=== PATIENT | female | born 1995 | race Caucasian/White ===

== ENCOUNTER 2018-03-14 23:51 | Emergency (ER) | payer BC, OTHER ==
[~2018-03-14] VITALS: Ht 180.3 cm; Wt 65.8 kg
[~2018-03-14 23:51] MED LIST: Cyclobenzaprine5 MG PO; ERYT.5TO RIGHTEYE
[2018-03-15] MEDS ORDERED: BIRTH CONTROL PILLS (00:09)
[2018-03-15] MEDS ORDERED: IBUP800 PO ×2 (00:49→01:09)
[2018-03-15] MEDS ORDERED: Zithromax250 MG PO ×2 (00:49→01:08)
== END 2018-03-15 01:12 | disposition home or self-care (01) ==
LOC: ER 23:51
DX: H66.91 Otitis media, unspecified, right ear (principal); Z88.0 Allergy status to penicillin; Z88.2 Allergy status to sulfonamides; Z79.2 Long term (current) use of antibiotics

== ENCOUNTER → 2018-06-20 | Outpatient (CLI) | payer BC, OTHER ==
[~2018-06-20] MED LIST changes: +BIRTH CONTROL PILLS; +IBUP800 PO; +Zithromax250 MG PO
[2018-06-23 05:12] LABS: CHLAMYDIA TRACHOMATIS, NAA Negative (Negative); NEISSERIA GONORRHOEAE, NAA Negative (Negative)
== END | disposition home or self-care (01) ==
LOC: LAB 16:47 → LAB SHORT 16:47
PROVIDERS: Obstetrics & Gynecology
DX: Z20.2 Contact with and (suspected) exposure to infections with a predominantly sexual mode of transmission (principal)
CPT/HCPCS: 87491; 87591

== ENCOUNTER 2018-12-06 22:51 | Inpatient (IN) | payer BC, OTHER ==
[~2018-12-06] VITALS: Ht 180.3 cm; Wt 100.0 kg
[2018-12-06 23:34] LABS: BASOPHILS ABSOLUTE AUTO 0.05 K/mm3 (0.00-0.23); BASOPHILS PERCENT AUTO 0 % (0-2); EOSINOPHILS ABSOLUTE AUTO 0.06 K/mm3 (0.00-0.68); EOSINOPHILS PERCENT AUTO 1 % (0-6); Hemoglobin 10.3 g/dL (11.5-16.0); IMMATURE GRAN ABSOLUTE AUTO 0.05 K/mm3 (0.00-0.10); IMMATURE GRAN PERCENT AUTO 0 % (0-1); LYMPHOCYTES ABSOLUTE AUTO 1.17 K/mm3 (0.84-5.20); LYMPHOCYTES PERCENT AUTO 9 % (21-46); MONOCYTES ABSOLUTE AUTO 0.97 K/mm3 (0.16-1.47); MONOCYTES PERCENT AUTO 8 % (4-13); Mean Corpuscular HGB 24.5 pg (26.0-34.0); Mean Corpuscular HGB Conc 31.2 g/dL (31.5-36.5); Mean Corpuscular Volume 78 fL (80-100); Mean Platelet Volume 10.3 fL (9.1-12.4); NEUTROPHILS ABSOLUTE AUTO 10.31 K/mm3 (1.96-9.15); NEUTROPHILS PERCENT AUTO 82 % (41-73); Platelet Count 251 K/mm3 (150-400); RDW Coefficient Variation 14.1 % (11.7-14.2); RDW Standard Deviation 39.8 fL (35.1-46.3); Red Blood Cell Count 4.21 M/mm3 (3.80-5.20); White Blood Cell Count 12.61 K/mm3 (4.00-11.30)
--- NOTE | 2018-12-07 08:22 | NUR ---
Pt gave [facility] permission to provide care 12/07/18.
[2018-12-08 06:06] LABS: BASOPHILS ABSOLUTE AUTO 0.06 K/mm3 (0.00-0.23); BASOPHILS PERCENT AUTO 1 % (0-2); EOSINOPHILS ABSOLUTE AUTO 0.15 K/mm3 (0.00-0.68); EOSINOPHILS PERCENT AUTO 2 % (0-6); Hematocrit 29.3 % (33.0-51.0); Hemoglobin 9.1 g/dL (11.5-16.0); IMMATURE GRAN ABSOLUTE AUTO 0.04 K/mm3 (0.00-0.10); IMMATURE GRAN PERCENT AUTO 1 % (0-1); LYMPHOCYTES ABSOLUTE AUTO 1.69 K/mm3 (0.84-5.20); LYMPHOCYTES PERCENT AUTO 19 % (21-46); MONOCYTES ABSOLUTE AUTO 0.73 K/mm3 (0.16-1.47); MONOCYTES PERCENT AUTO 8 % (4-13); Mean Corpuscular HGB 24.6 pg (26.0-34.0); Mean Corpuscular HGB Conc 31.1 g/dL (31.5-36.5); Mean Corpuscular Volume 79 fL (80-100); Mean Platelet Volume 10.3 fL (9.1-12.4); NEUTROPHILS ABSOLUTE AUTO 6.12 K/mm3 (1.96-9.15); NEUTROPHILS PERCENT AUTO 70 % (41-73); Platelet Count 191 K/mm3 (150-400); RDW Coefficient Variation 14.3 % (11.7-14.2); RDW Standard Deviation 41.3 fL (35.1-46.3); White Blood Cell Count 8.79 K/mm3 (4.00-11.30)
[2018-12-09] MEDS ORDERED: IBUP800 PO (09:26)
--- NOTE | 2018-12-09 13:36 | NUR ---
PT DISCHARGED TO HOME. DISCHARGE TEACHING PROVIDED. NO QUESTIONS OR CONCERNS AT THIS TIME. CARSEAT CHECKED.
== END 2018-12-09 13:30 | disposition home or self-care (01) | DRG 807 ==
LOC: BC 22:51 → OBS 22:51 → BC 23:09
PROVIDERS: ADMIT Obstetrics & Gynecology
PROC: 10E0XZZ Delivery of Products of Conception, External Approach (ICD-10-PCS; principal; 2018-12-07)
PROC: 3E0R3BZ Introduction of Anesthetic Agent into Spinal Canal, Percutaneous Approach (ICD-10-PCS; 2018-12-07)
DX: O99.824 Streptococcus B carrier state complicating childbirth (principal); Z37.0 Single live birth; O70.1 Second degree perineal laceration during delivery; Z3A.38 38 weeks gestation of pregnancy; Z88.0 Allergy status to penicillin; Z88.2 Allergy status to sulfonamides
CPT/HCPCS: 36415; 51702; 59025; 85025; 96365; 99213; J1885; J2210; J2405; J2590; J3010; J3370; J7120

== ENCOUNTER → 2021-06-22 | Outpatient (CLI) | payer BC, OTHER | END | disposition home or self-care (01) | LOC: LAB 15:13 → LAB SHORT 15:13 | DX: Z34.83 Encounter for supervision of other normal pregnancy, third trimester (principal) | CPT/HCPCS: 87081; 87150 ==

== ENCOUNTER 2021-07-26 03:02 | Inpatient (IN) | payer OTHER ==
[~2021-07-26] VITALS: Ht 180.3 cm; Wt 97.7 kg
[2021-07-26 03:31] LABS: BASOPHILS ABSOLUTE AUTO 0.07 K/mm3 (0.00-0.23); BASOPHILS PERCENT AUTO 1 % (0-2); EOSINOPHILS ABSOLUTE AUTO 0.08 K/mm3 (0.00-0.68); EOSINOPHILS PERCENT AUTO 1 % (0-6); Hematocrit 36.6 % (33.0-51.0); Hemoglobin 12.1 g/dL (11.5-16.0); IMMATURE GRAN ABSOLUTE AUTO 0.06 K/mm3 (0.00-0.10); IMMATURE GRAN PERCENT AUTO 1 % (0-1); LYMPHOCYTES PERCENT AUTO 13 % (21-46); MONOCYTES ABSOLUTE AUTO 0.75 K/mm3 (0.16-1.47); MONOCYTES PERCENT AUTO 6 % (4-13); Mean Corpuscular HGB 27.1 pg (26.0-34.0); Mean Corpuscular HGB Conc 33.1 g/dL (31.5-36.5); Mean Corpuscular Volume 82 fL (80-100); Mean Platelet Volume 10.7 fL (9.1-12.4); NEUTROPHILS ABSOLUTE AUTO 9.68 K/mm3 (1.96-9.15); NEUTROPHILS PERCENT AUTO 79 % (41-73); Platelet Count 214 K/mm3 (150-400); RDW Coefficient Variation 13.6 % (11.7-14.2); RDW Standard Deviation 39.8 fL (35.1-46.3); Red Blood Cell Count 4.47 M/mm3 (3.80-5.20); White Blood Cell Count 12.24 K/mm3 (4.00-11.30)
[2021-07-26] MEDS ORDERED: PRENATAL TABLE1 EAC2 PO (03:34)
[2021-07-26 04:23] LABS: SARS-Cov-2 (COVID-19) PCR, MMC POSITIVE (NEGATIVE)
[2021-07-26] MEDS ORDERED: IBUP800 PO (09:11)
[2021-07-27 06:31] LABS: BASOPHILS ABSOLUTE AUTO 0.06 K/mm3 (0.00-0.23); BASOPHILS PERCENT AUTO 1 % (0-2); EOSINOPHILS ABSOLUTE AUTO 0.16 K/mm3 (0.00-0.68); EOSINOPHILS PERCENT AUTO 2 % (0-6); Hematocrit 32.9 % (33.0-51.0); Hemoglobin 10.6 g/dL (11.5-16.0); IMMATURE GRAN ABSOLUTE AUTO 0.04 K/mm3 (0.00-0.10); IMMATURE GRAN PERCENT AUTO 1 % (0-1); LYMPHOCYTES ABSOLUTE AUTO 1.95 K/mm3 (0.84-5.20); LYMPHOCYTES PERCENT AUTO 23 % (21-46); MONOCYTES ABSOLUTE AUTO 0.67 K/mm3 (0.16-1.47); MONOCYTES PERCENT AUTO 8 % (4-13); Mean Corpuscular HGB Conc 32.2 g/dL (31.5-36.5); Mean Corpuscular Volume 84 fL (80-100); Mean Platelet Volume 10.8 fL (9.1-12.4); NEUTROPHILS ABSOLUTE AUTO 5.48 K/mm3 (1.96-9.15); NEUTROPHILS PERCENT AUTO 66 % (41-73); Platelet Count 187 K/mm3 (150-400); RDW Standard Deviation 41.9 fL (35.1-46.3); Red Blood Cell Count 3.92 M/mm3 (3.80-5.20); White Blood Cell Count 8.36 K/mm3 (4.00-11.30)
== END 2021-07-27 16:00 | disposition home or self-care (01) | DRG 805 ==
LOC: OBS 03:02 → BC 03:05 → OBS 03:14 → BC 03:16
PROVIDERS: ADMIT Obstetrics & Gynecology
PROC: 10E0XZZ Delivery of Products of Conception, External Approach (ICD-10-PCS; principal; 2021-07-26)
PROC: 00HU33Z Insertion of Infusion Device into Spinal Canal, Percutaneous Approach (ICD-10-PCS; 2021-07-26)
PROC: 3E0R3BZ Introduction of Anesthetic Agent into Spinal Canal, Percutaneous Approach (ICD-10-PCS; 2021-07-26)
PROC: 0HQ9XZZ Repair Perineum Skin, External Approach (ICD-10-PCS; 2021-07-26)
PROC: 8E0ZXY6 Isolation (ICD-10-PCS; 2021-07-26)
DX: O98.52 Other viral diseases complicating childbirth (principal); U07.1 COVID-19; Z37.0 Single live birth; Z3A.40 40 weeks gestation of pregnancy; Z67.40 Type O blood, Rh positive; O77.0 Labor and delivery complicated by meconium in amniotic fluid; O69.81X0 Labor and delivery complicated by cord around neck, without compression, not applicable or unspecified; O70.0 First degree perineal laceration during delivery; Z88.0 Allergy status to penicillin; Z88.2 Allergy status to sulfonamides
CPT/HCPCS: 36415; 51701; 85025; 86850; 86900; 86901; A9270; J1885; J2001; J2210; J2590; J3010; J7120; U0004

== ENCOUNTER → 2022-09-17 | Outpatient (CLI) | payer OTHER ==
[~2022-09-17] MED LIST changes: +PRENATAL TABLE1 EAC2 PO
[2022-09-18 13:59] LABS: Candida species (DNA Probe) Negative (NEGATIVE); G. vaginalis (DNA Probe) Negative (NEGATIVE); T. vaginalis (DNA Probe) Negative (NEGATIVE)
[2022-09-19 23:08] LABS: CHLAMYDIA TRACHOMATIS, NAA Negative (Negative)
== END ==
LOC: LAB 18:38 → LAB SHORT 18:38
PROVIDERS: Obstetrics & Gynecology
DX: N89.8 Other specified noninflammatory disorders of vagina (principal); Z01.419 Encounter for gynecological examination (general) (routine) without abnormal findings; Z11.3 Encounter for screening for infections with a predominantly sexual mode of transmission
CPT/HCPCS: 87480; 87510; 87660

== ENCOUNTER → 2022-09-30 | Outpatient (CLI) | payer OTHER | END | disposition home or self-care (01) | LOC: LAB 14:51 → LAB SHORT 14:51 | PROVIDERS: Obstetrics & Gynecology | DX: R87.615 Unsatisfactory cytologic smear of cervix (principal) | CPT/HCPCS: G0123 ==

== ENCOUNTER → 2023-12-08 | Outpatient (CLI) | payer OTHER ==
[2023-12-09 11:55] LABS: Candida species (DNA Probe) Negative (NEGATIVE); G. vaginalis (DNA Probe) Positive (NEGATIVE); T. vaginalis (DNA Probe) Negative (NEGATIVE)
[2023-12-10 20:39] LABS: APTIMA MEDIA TYPE Unisex Swab; C. TRACHOMATIS BY TMA Negative (Negative); N. GONORRHOEAE BY TMA Negative (Negative); SPECIMEN SOURCE Cervical/Vag
== END ==
LOC: LAB 17:25 → LAB SHORT 17:25
PROVIDERS: Obstetrics & Gynecology
DX: Z11.3 Encounter for screening for infections with a predominantly sexual mode of transmission (principal)
CPT/HCPCS: 87480; 87491; 87510; 87591; 87660

== ENCOUNTER 2025-04-29 09:33 | Emergency (ER) | payer OTHER ==
[~2025-04-29] VITALS: Ht 180.3 cm; Wt 81.7 kg
[2025-04-29 10:04] VITALS: BP 126/70
[2025-04-29] MEDS ORDERED: Ibuprofen 600 MG Tab PO ONE (10:10)
[2025-04-29] MEDS ORDERED: IBUP800 PO (13:39)
== END 2025-04-29 14:07 | disposition home or self-care (01) ==
LOC: ER 09:33
DX: S93.401A Sprain of unspecified ligament of right ankle, initial encounter (principal); S80.12XA Contusion of left lower leg, initial encounter; Z88.0 Allergy status to penicillin; Z88.2 Allergy status to sulfonamides; V43.62XA Car passenger injured in collision with other type car in traffic accident, initial encounter
CPT/HCPCS: 73590; 73610; 99284-25